=== PATIENT | female | born 1990 | race Caucasian/White ===

== ENCOUNTER 2019-12-26 02:11 | Emergency (ER) | payer MEDICAID ==
[~2019-12-26] VITALS: Ht 175.3 cm; Wt 81.6 kg
[2019-12-26 02:20] VITALS: Ht 175.3 cm; Wt 81.6 kg
[2019-12-26 02:38] LABS: HEMATOCRIT 40.3 % (36.0-48.0); HEMOGLOBIN 13.2 g/dL (12-16); LYMPHOCYTES 11.5 % (15-50); MCH 30.2 pg (26.0-34.0); MCHC 32.8 g/dL (31.0-37.0); MCV 92.2 fL (80.0-100.0); MEAN PLATELET VOLUME 9.2 fL (7.4-10.4); NEUTROPHILS 80.9 % (40-80); RBC 4.37 10x6/uL (4.00-5.40); RDW 12.4 % (11.5-14.5); WBC 16.5 10x3/uL (4.8-10.8)
[2019-12-26 02:40] LABS: PLATELET COUNT 277 10x3/uL (130-400)
[2019-12-26 02:45] LABS: CALC OSMOLALITY 279 mosm/kg (275-300); CARBON DIOXIDE 30.7 mmol/L (21.0-32.0); CHLORIDE - SERUM 102 mmol/L (98-107); CREATININE - SERUM 0.9 mg/dL (0.6-1.3); GLUCOSE 109 mg/dL (74-106); SODIUM 139 mmol/L (136-145); UREA NITROGEN 16 mg/dL (7-18); eGFR NON AFRICAN AMERICAN 77 mL/min (90-120)
[2019-12-26 02:55] LABS: ALBUMIN 3.6 g/dL (3.4-5.0); ALKALINE PHOSPHATASE 98 U/L (30-120); ALT (SGPT) 28 U/L (10-68); AMYLASE - SERUM 11 U/L (25-115); BILIRUBIN - TOTAL 0.63 mg/dL (0.2-1.3); LIPASE 69 U/L (73-393); PROTEIN - SERUM 7.4 g/dL (6.4-8.2); TROPONIN-I < 0.017 ng/mL (0.000-0.060)
[2019-12-26 02:59] LABS: BILIRUBIN NEGATIVE (NEGATIVE); GLUCOSE NEGATIVE (NEGATIVE); KETONE NEGATIVE (NEGATIVE); NITRITE POSITIVE (NEGATIVE); SPECIFIC GRAVITY 1.015 (1.005-1.020); UROBILINOGEN NORMAL (NORMAL)
[2019-12-26 03:00] LABS: BACTERIA MANY /hpf (NEGATIVE); EPITHELIAL CELLS 0-5 /hpf (0-5); RED CELLS - URINE 0-5 /hpf (0-5)
[2019-12-26 03:36] LABS: HCG URINE NEGATIVE (NEGATIVE)
[2019-12-26 03:43] LABS: UDS - AMPHET POSITIVE QUAL (NEGATIVE); UDS - BARB NEGATIVE QUAL (NEGATIVE); UDS - BENZO NEGATIVE QUAL (NEGATIVE); UDS - COCAINE POSITIVE QUAL (NEGATIVE); UDS - OPIATE NEGATIVE QUAL (NEGATIVE); UDS - PCP NEGATIVE QUAL (NEGATIVE); UDS - THC NEGATIVE QUAL (NEGATIVE)
[2019-12-26] MEDS ORDERED: BACTRIM DS TAB1 EAC1 PO (06:00)
[2019-12-26] MEDS ORDERED: FLAGYL500 MG PO (06:00)
[2019-12-26 06:17] VITALS: BP 133/73
== END 2019-12-26 06:17 | disposition home or self-care (01) ==
LOC: D.ER 02:11
PROVIDERS: Emergency Medicine
DX: N39.0 Urinary tract infection, site not specified (principal); F14.10 Cocaine abuse, uncomplicated; R10.30 Lower abdominal pain, unspecified; F15.10 Other stimulant abuse, uncomplicated; D72.829 Elevated white blood cell count, unspecified; R11.0 Nausea

== ENCOUNTER 2020-03-03 14:30 | Inpatient (IN) | payer MEDICAID ==
[~2020-03-03] VITALS: Ht 175.3 cm; Wt 90.7 kg
[~2020-03-03 14:30] MED LIST: BACTRIM DS TAB1 EAC1 PO; FLAGYL500 MG PO
--- NOTE | 2020-03-03 15:41 | NUR ---
RECEIVED PT AT 1540
[2020-03-03 16:47] LABS: BILIRUBIN 1+ (NEGATIVE); KETONE NEGATIVE (NEGATIVE); NITRITE POSITIVE (NEGATIVE); UROBILINOGEN NORMAL mg/dL (< 2)
[2020-03-03 16:49] LABS: BACTERIA MANY HPF (NONE SEEN); EPITHELIAL CELLS 0-5 /hpf (0-5)
[2020-03-03 17:11] LABS: BASOPHILS 2.6 % (0-2); EOSINOPHILS 1.3 % (0-7); HEMATOCRIT 47.9 % (36.0-48.0); IMMATURE GRANULOCYTES 1.1 % (0-5); LYMPHOCYTES 30.9 % (15-50); MCH 30.5 pg (26.0-34.0); MCHC 33.4 g/dL (31.0-37.0); MCV 91.2 fL (80.0-100.0); MEAN PLATELET VOLUME 10.5 fL (7.4-10.4); MONOCYTES 16.6 % (2-11); NEUTROPHILS 47.5 % (40-80); RBC 5.25 10x6/uL (4.00-5.40); RDW 14.5 % (11.5-14.5); WBC 4.7 10x3/uL (4.8-10.8)
[2020-03-03 17:12] LABS: PLATELET COUNT 195 10x3/uL (130-400)
--- NOTE | 2020-03-03 17:22 | NUR ---
COVID SWAB TO LAB
[2020-03-03 17:58] VITALS: BP 118/82
[2020-03-03 18:29] LABS: HCG URINE NEGATIVE (NEGATIVE)
[2020-03-03 19:41] LABS: CALC OSMOLALITY 271 mosm/kg (275-300); CALCIUM 8.9 mg/dL (8.5-10.1); CARBON DIOXIDE 31.8 mmol/L (21.0-32.0); CHLORIDE - SERUM 102 mmol/L (98-107); CREATININE - SERUM 0.8 mg/dL (0.6-1.3); GLUCOSE 106 mg/dL (74-106); POTASSIUM - SERUM 4.2 mmol/L (3.5-5.1); SODIUM 136 mmol/L (136-145); UREA NITROGEN 13 mg/dL (7-18); eGFR NON AFRICAN AMERICAN 89 mL/min (90-120)
[2020-03-03 19:53] LABS: ALKALINE PHOSPHATASE 281 U/L (30-120); BILIRUBIN - TOTAL 4.49 mg/dL (0.2-1.3); CKMB 0.6 U/L (0.0-3.6); CREATINE KINASE 40 UL (21-215); PROTEIN - SERUM 6.6 g/dL (6.4-8.2); TROPONIN-I < 0.017 ng/mL (0.000-0.060)
[2020-03-03 19:54] LABS: ALT (SGPT) 4786 U/L (10-68)
[2020-03-03 21:42] VITALS: BP 112/71
[2020-03-03 22:04] LABS: UDS - AMPHET POSITIVE QUAL (NEGATIVE); UDS - BARB NEGATIVE QUAL (NEGATIVE); UDS - BENZO NEGATIVE QUAL (NEGATIVE); UDS - COCAINE NEGATIVE QUAL (NEGATIVE); UDS - OPIATE POSITIVE QUAL (NEGATIVE); UDS - PCP NEGATIVE QUAL (NEGATIVE); UDS - THC NEGATIVE QUAL (NEGATIVE)
[2020-03-03 22:50] VITALS: BP 108/66
--- NOTE | 2020-03-03 23:02 | NUR ---
NS INFUSING 100 ML/H WITH 950 ML REMAINING ON ADMIT TO FLOOR
--- NOTE | 2020-03-03 23:03 | NUR ---
ZOSYN INFUSING OVER 30 MIN UPON ADMIT TO FLOOR
--- NOTE | 2020-03-03 23:53 | NUR ---
PATIENT TO THE FLOOR. A&O X4. PATIENT HAS A RIGHT HAND PIV PATENT WITH FLUIDS RUNNING. CALL LIGHT WITHIN REACH AND BED IN LOWEST LOCKED POSITION.
[2020-03-04 00:16] VITALS: BP 124/61; BMI 29.6
[2020-03-04 06:26] LABS: HEMATOCRIT 41.5 % (36.0-48.0); HEMOGLOBIN 13.7 g/dL (12-16); MCV 90.8 fL (80.0-100.0); MEAN PLATELET VOLUME 10.3 fL (7.4-10.4); PLATELET COUNT 206 10x3/uL (130-400); RBC 4.57 10x6/uL (4.00-5.40); RDW 14.4 % (11.5-14.5); WBC 3.8 10x3/uL (4.8-10.8)
[2020-03-04 06:52] LABS: ALBUMIN 2.5 g/dL (3.4-5.0); ALKALINE PHOSPHATASE 239 U/L (30-120); AMYLASE - SERUM 11 U/L (25-115); BILIRUBIN - TOTAL 4.85 mg/dL (0.2-1.3); CALCIUM 8.1 mg/dL (8.5-10.1); CARBON DIOXIDE 28.8 mmol/L (21.0-32.0); CHLORIDE - SERUM 103 mmol/L (98-107); CREATININE - SERUM 0.7 mg/dL (0.6-1.3); GLUCOSE 72 mg/dL (74-106); LIPASE 67 U/L (73-393); MAGNESIUM - SERUM 1.9 mg/dL (1.8-2.4); PHOSPHOROUS 2.7 mg/dL (2.5-4.9); POTASSIUM - SERUM 3.8 mmol/L (3.5-5.1); SODIUM 137 mmol/L (136-145); eGFR NON AFRICAN AMERICAN > 90 mL/min (90-120)
[2020-03-04 07:00] LABS: CALC OSMOLALITY 271 mosm/kg (275-300); UREA NITROGEN 9 mg/dL (7-18)
[2020-03-04 07:08] LABS: APTT 32.5 SECONDS (22.8-39.4); INR 1.61 (0.85-1.17)
[2020-03-04 07:52] LABS: PRO BNP 9 pg/mL (0-125)
[2020-03-04 08:10] LABS: EOSINOPHILS 1 % (0-7); LYMPHOCYTES 32 % (15-50); MONOCYTES 15 % (2-11); NEUTROPHILS 51 % (40-80); PLATELET ESTIMATE NORMAL
[2020-03-04 08:22] VITALS: BP 105/57
[2020-03-04 08:39] LABS: ALT (SGPT) 4384 U/L (10-68)
[2020-03-04 12:23] VITALS: BP 126/70
--- NOTE | 2020-03-04 13:32 | NUR ---
I have reviewed this patient and I concur with the Shift Assessment completed by the Licensed Practical Nurse today this shift.
[2020-03-04 15:10] LABS: ALBUMIN 2.6 g/dL (3.4-5.0); BILIRUBIN - DIRECT 3.84 mg/dL (0.00-0.30); BILIRUBIN - INDIRECT 0.92 mg/dL (0.00-1.00); BILIRUBIN - TOTAL 4.76 mg/dL (0.2-1.3); PROTEIN - SERUM 6.1 g/dL (6.4-8.2)
[2020-03-04 15:24] VITALS: BP 110/68
[2020-03-04 22:26] VITALS: BP 99/69
[2020-03-05 02:47] VITALS: BP 113/63
[2020-03-05 06:15] VITALS: BP 111/59
[2020-03-05 09:13] LABS: HEPATITIS C ANTIBODY <0.1 S/CO RAT (0.0-0.9)
[2020-03-05 09:27] VITALS: BP 109/62
[2020-03-05 10:24] LABS: BASOPHILS 1.5 % (0-2); EOSINOPHILS 1.5 % (0-7); HEMOGLOBIN 13.3 g/dL (12-16); IMMATURE GRANULOCYTES 0.8 % (0-5); LYMPHOCYTES 49.6 % (15-50); MCH 29.8 pg (26.0-34.0); MCHC 32.4 g/dL (31.0-37.0); MCV 91.7 fL (80.0-100.0); MEAN PLATELET VOLUME 10.2 fL (7.4-10.4); MONOCYTES 14.5 % (2-11); NEUTROPHILS 32.1 % (40-80); PLATELET COUNT 224 10x3/uL (130-400); RBC 4.47 10x6/uL (4.00-5.40); RDW 14.6 % (11.5-14.5); WBC 5.3 10x3/uL (4.8-10.8)
[2020-03-05 10:59] LABS: ALBUMIN 2.4 g/dL (3.4-5.0); ALKALINE PHOSPHATASE 273 U/L (30-120); CALCIUM 8.2 mg/dL (8.5-10.1); CARBON DIOXIDE 30.3 mmol/L (21.0-32.0); CHLORIDE - SERUM 102 mmol/L (98-107); CREATININE - SERUM 0.7 mg/dL (0.6-1.3); GLUCOSE 105 mg/dL (74-106); MAGNESIUM - SERUM 1.8 mg/dL (1.8-2.4); PHOSPHOROUS 2.5 mg/dL (2.5-4.9); POTASSIUM - SERUM 3.8 mmol/L (3.5-5.1); SODIUM 135 mmol/L (136-145); eGFR NON AFRICAN AMERICAN > 90 mL/min (90-120)
[2020-03-05 11:02] LABS: ALT (SGPT) 3046 U/L (10-68); CALC OSMOLALITY 266 mosm/kg (275-300); UREA NITROGEN 5 mg/dL (7-18)
[2020-03-05 13:00] VITALS: BP 111/68
[2020-03-05 17:18] VITALS: BP 144/71
[2020-03-05 20:00] VITALS: BP 105/59
--- NOTE | 2020-03-05 20:06 | NUR ---
RECIEVED LAYING IN BED WITH EYES CLOSED. EASILY AROUSES WITH VERBAL STIMULI. SON AT BEDSIDE. IV TO RT HAND WITH NS AT 100. DENIES ANY NEEDS AT THIS TIME.
[2020-03-06 04:00] VITALS: BP 104/53
[2020-03-06 06:31] LABS: ALBUMIN 2.4 g/dL (3.4-5.0); ALKALINE PHOSPHATASE 327 U/L (30-120); BILIRUBIN - TOTAL 6.21 mg/dL (0.2-1.3); CALC OSMOLALITY 263 mosm/kg (275-300); CARBON DIOXIDE 27.2 mmol/L (21.0-32.0); CHLORIDE - SERUM 100 mmol/L (98-107); CREATININE - SERUM 0.7 mg/dL (0.6-1.3); GLUCOSE 109 mg/dL (74-106); MAGNESIUM - SERUM 1.9 mg/dL (1.8-2.4); PHOSPHOROUS 2.6 mg/dL (2.5-4.9); POTASSIUM - SERUM 4.2 mmol/L (3.5-5.1); PROTEIN - SERUM 6.2 g/dL (6.4-8.2); SODIUM 133 mmol/L (136-145); UREA NITROGEN 4 mg/dL (7-18); eGFR NON AFRICAN AMERICAN > 90 mL/min (90-120)
[2020-03-06 06:37] LABS: ALT (SGPT) 2389 U/L (10-68)
[2020-03-06 08:03] LABS: HEMATOCRIT 43.8 % (36.0-48.0); HEMOGLOBIN 14.7 g/dL (12-16); MCH 30.8 pg (26.0-34.0); MCHC 33.6 g/dL (31.0-37.0); MCV 91.6 fL (80.0-100.0); MEAN PLATELET VOLUME 10.9 fL (7.4-10.4); PLATELET COUNT 242 10x3/uL (130-400); RBC 4.78 10x6/uL (4.00-5.40); WBC 5.5 10x3/uL (4.8-10.8)
[2020-03-06 08:24] VITALS: BP 114/54
[2020-03-06 08:40] LABS: EOSINOPHILS 1 % (0-7); LYMPHOCYTES 35 % (15-50); MONOCYTES 2 % (2-11); NEUTROPHILS 58 % (40-80); PLATELET ESTIMATE NORMAL
[2020-03-06 09:02] VITALS: Ht 175.3 cm; Wt 90.7 kg
[2020-03-06] MEDS ORDERED: ZOFRAN ODT4 MG/UDTAB PO (11:28)
[2020-03-06] MEDS ORDERED: LEVOFLOXACIN500 MG PO (11:32)
--- NOTE | 2020-03-06 12:57 | MORECARE ---
CASE MANAGEMENT DISCHARGE SUMMARY PATIENT: JERRYJUNE Brianna UNIT: [id number] ADM DATE: 03/05/20 AGE: 29 : [birth year] SEX: F ROOM/BED: D.2106 AUTHOR: MAIN,DOC PHYSICIAN: REFERRING PHYSICIAN: PHIL EVERETT MD DATE OF SERVICE: 03/06/20 Discharge Plan Patient Name: FACUNDO EDWARDS [facility] : 1990 Planned Disposition: Home Anticipated Discharge Date: Discharge Date: Expected LOS: Initial Reviewer: [email or web address] Initial Review Date: 03/06/2020 Generated: 03/06/20 1:56 pm Comments DCP- Discharge Planning Updated by [email or web address]: Beena Castelan on 03/06/20 11:[address] Patient Name: JUNE Brianna EDWARDS Admission Status: ER Accout number: [id number] Admission Date: 03-05-2020 : 1990 Admission Diagnosis: Attending: MARGUERITE, Current LOS: 1 Anticipated DC Date: Planned Disposition: Home Primary Insurance: [employer] [place] PRIVATE OPTIONS [facility] Discharge Planning Comments: CM met with patient to complete initial dc planning assessment. CM educated patient on the CM role and verbal consent given by patient to complete assessment. Patient lives at home with her step mom (Cha) and her 3 children (ages 13,12 and 5). At discharge patient plans to return and feels this is a safe discharge. CM discussed availability of home health, rehab services, and medical equipment. Patient denied known discharge needs at this time. Her [address] address is [address] [place] [address]. CM will continue to follow and will assist as needed with dc plans/needs. Product Assurance Engineer: Beena Castelan DCPIA - Discharge Planning Initial Assessment Updated by [email or web address]: Beena Castelan on 03/06/20 12:54 pm * Is the patient Alert and Oriented? Yes * Preadmission Environment Home with Family * ADLs Independent * Equipment None * List name and contact numbers for known caregivers / representatives who currently or will assist patient after discharge: Nery saha - [phone] * Verbal permission to speak to the caregivers and representatives has been obtained from the patient. Yes * Community resources currently utilized None * Additional services required to return to the preadmission environment? No * Can the patient safely return to the preadmission environment? Yes * Has this patient been hospitalized within the prior 30 days at any hospital? No Patient Name: JERRYJune Page 99624 at 1257 All edits/amendments must be made on the electronic document DICTATION DATE: 03/06/201255 COMPANY PILOT: BERTA 03/06/201255 RPT#: [id number] DC DATE: STATUS: ADM IN [facility] [address] [place] [address] END OF REPORT
--- NOTE | 2020-03-06 13:39 | NUR ---
SALINE LOCK REMOVED, [id number] INSTRUCTIONS WITH PATIENT AND MOTHER. TO CAR VIA WHEELCHAIR.
--- NOTE | 2020-03-07 11:30 | MORECARE ---
CASE MANAGEMENT DISCHARGE SUMMARY PATIENT: JERRYJune UNIT: [id number] ADM DATE: 03/05/20 AGE: 29 : [birth year] SEX: F ROOM/BED: D.2106 AUTHOR: MAIN,DOC PHYSICIAN: REFERRING PHYSICIAN: PHIL EVERETT MD DATE OF SERVICE: 03/07/20 Discharge Plan Patient Name: JERRY JUNE Facility[facility]:[place] : 1990 Planned Disposition: Home Anticipated Discharge Date: Discharge Date: 03/06/2020 Expected LOS: 0 Initial Reviewer: [email or web address] Initial Review Date: 03/06/2020 Generated: 03/07/20 12:29 pm Comments DCP- Discharge Planning Updated by [email or web address]: Beena Castelan on 03/06/20 11:[address] Patient Name: JUNE Brianna EDWARDS Admission Status: ER Accout number: [id number] Admission Date: 03-05-2020 : 1990 Admission Diagnosis: Attending: MARGUERITE, Current LOS: 1 Anticipated DC Date: Planned Disposition: Home Primary Insurance: [employer] [place] [employer] [place] Discharge Planning Comments: CM met with patient to complete initial dc planning assessment. CM educated patient on the CM role and verbal consent given by patient to complete assessment. Patient lives at home with her step mom (Cha) and her 3 children (ages 13,12 and 5). At discharge patient plans to return and feels this is a safe discharge. CM discussed availability of home health, rehab services, and medical equipment. Patient denied known discharge needs at this time. Her home address is [address] [place] [address]. CM will continue to follow and will assist as needed with dc plans/needs. Sheet Ironworker: Beena Castelan DCPIA - Discharge Planning Initial Assessment Updated by [email or web address]: Beena Castelan on 03/06/20 12:54 pm * Is the patient Alert and Oriented? Yes * Preadmission Environment Home with Family * ADLs Independent * Equipment None * List name and contact numbers for known caregivers / representatives who currently or will assist patient after discharge: Nery saha - [phone] * Verbal permission to speak to the caregivers and representatives has been obtained from the patient. Yes * Community resources currently utilized None * Additional services required to return to the preadmission environment? No * Can the patient safely return to the preadmission environment? Yes * Has this patient been hospitalized within the prior 30 days at any hospital? No Last DP export: 03/06/20 11:57 a Patient Name: JERRY JUNE Page 93633 at 1130 All edits/amendments must be made on the electronic document DICTATION DATE: 03/07/20 112 PET CARE TECHNICIAN: BERTA 03/07/20 1129 RPT#: [id number] DC DATE:03/06/20 STATUS: DIS IN [facility] [address] [place] [address] END OF REPORT
[2020-03-07 18:07] LABS: LIVER-KIDNEY MICROSOMAL AB 0.8 Units (0.0-20.0)
== END 2020-03-06 13:40 | disposition home or self-care (01) | DRG 442 ==
LOC: D.ER 14:30 → D.M2 22:45 → OBSVTIME 22:45 → D.M2 03-05 12:08
PROVIDERS: Family Medicine; ADMIT Family Medicine; ATTEND Family Medicine
DX: B15.9 Hepatitis A without hepatic coma (principal); F11.20 Opioid dependence, uncomplicated; N39.0 Urinary tract infection, site not specified; N30.80 Other cystitis without hematuria; F15.10 Other stimulant abuse, uncomplicated

== ENCOUNTER 2020-11-21 16:56 | Emergency (ER) | payer BC ==
[~2020-11-21] VITALS: Ht 175.3 cm; Wt 86.4 kg
[~2020-11-21 16:56] MED LIST changes: +LEVOFLOXACIN500 MG PO; +ZOFRAN ODT4 MG/UDTAB PO
[2020-11-21 17:20] VITALS: Ht 175.3 cm; Wt 86.4 kg
[2020-11-21] MEDS ORDERED: PRENAVITE1 TAB PO (17:27)
[2020-11-21 17:53] LABS: BASOPHILS 0.6 % (0-2); EOSINOPHILS 3.1 % (0-7); HEMATOCRIT 40.3 % (36.0-48.0); HEMOGLOBIN 13.7 g/dL (12-16); LYMPHOCYTES 37.4 % (15-50); MCH 30.4 pg (26.0-34.0); MCV 89.4 fL (80.0-100.0); MEAN PLATELET VOLUME 7.5 fL (7.4-10.4); MONOCYTES 6.9 % (2-11); PLATELET COUNT 251 10x3/uL (130-400); WBC 8.1 10x3/uL (4.8-10.8)
[2020-11-21 18:30] LABS: ALKALINE PHOSPHATASE 54 U/L (30-120); ALT (SGPT) 74 U/L (10-68); BILIRUBIN - TOTAL 0.25 mg/dL (0.2-1.3); CALC OSMOLALITY 277 mosm/kg (275-300); CHLORIDE - SERUM 104 mmol/L (98-107); CREATININE - SERUM 0.8 mg/dL (0.6-1.3); GLUCOSE 88 mg/dL (74-106); HCG - QUANTITATIVE (MATERNAL) 968 mIU/mL; POTASSIUM - SERUM 3.6 mmol/L (3.5-5.1); PROTEIN - SERUM 7.7 g/dL (6.4-8.2); SODIUM 140 mmol/L (136-145); UREA NITROGEN 13 mg/dL (7-18); eGFR NON AFRICAN AMERICAN 88 mL/min (90-120)
[2020-11-21 18:31] LABS: CARBON DIOXIDE 25.4 mmol/L (21.0-32.0)
[2020-11-21 18:38] LABS: BACTERIA MOD HPF (<MOD); BILIRUBIN NEGATIVE (NEGATIVE); KETONE NEGATIVE mg/dL (< 1+); NITRITE POSITIVE (NEGATIVE); PH 5.5 (5.0-8.0); SQUAMOUS EPITHELIAL 3 HPF (0-4); UROBILINOGEN NORMAL mg/dL (< 2); WHITE CELLS - URINE 15 HPF (0-4)
[2020-11-21 20:32] LABS: HCG SERUM POSITIVE (NEGATIVE)
[2020-11-21] MEDS ORDERED: MACROBID100 MG PO (20:32)
[2020-11-21 21:00] VITALS: BP 132/84
== END 2020-11-21 21:00 | disposition home or self-care (01) ==
LOC: D.ER 16:56
PROVIDERS: Family Medicine
DX: O20.9 Hemorrhage in early pregnancy, unspecified (principal); Z3A.00 Weeks of gestation of pregnancy not specified; K21.9 Gastro-esophageal reflux disease without esophagitis